=== PATIENT | female | born 1970 | race Caucasian/White ===

== ENCOUNTER 2018-09-01 08:57 | Emergency (ER) | payer OTHER ==
[2018-09-01] MEDS ORDERED: PROMETHAZINE HCL 25 MG/ML INJ IVP ONE ×2 (09:01→09:22)
[2018-09-01] MEDS ORDERED: NS 1,000 ML IV ONE (09:17)
--- NOTE | 2018-09-01 09:32 | EDPHY ---
H & P Stated Complaint: vomiting Source: Patient, RN/MD Exam Limitations: No limitations - Personal History LMP (Females 10-55): Hysterectomy Current Tetanus/Diphtheria Vaccine: Yes Current Tetanus Diphtheria and Acellular Pertussis (TDAP): Yes Tetanus Vaccine Date: last 10 years - Medical/Surgical History Hx Asthma: Yes Hx Chronic Respiratory Disease: No Hx Diabetes: No Hx Cardiac Disease: No Hx Renal Disease: No Hx Cirrhosis: No Hx Alcoholism: No Hx HIV/AIDS: No Hx Splenectomy or Spleen Trauma: No Other PMH: ovarian cancer survivor x 5 years - Social History Smoking Status: Never smoked Time Seen by Provider: 09/01/18 09:17 HPI/ROS: HPI: This is a 47-year-old female who presents with Chief Complaint: Nausea, vomiting Location: GI Quality: Nausea, vomiting Duration: Since 5:00 a.m. Approximately 4 hr Signs and Symptoms: no fever, + nausea, + vomiting, no hematemesis, no blood in stool, no abdominal bloating, no diarrhea, no back pain, no urinary symptoms, no vaginal bleeding/discharge, no indigestion, no chest pain, no shortness of breath Timing: Acute onset, intermittent episodes Severity: Moderate Context: Patient is ovarian cancer survivors, status post hysterectomy x5 years presents with sudden onset of nausea and vomiting 10-20 times that started around 5:00 a.m. This morning approximately 4 hr prior to arrival. Patient admits to drinking vodka all day yesterday. She is here visiting from [place] and leaves tomorrow. She has no concern for food borne illness. She completed azithromycin 5 day course approximately 3 days ago for sinus infection. She denies fever, urinary symptoms, diarrhea, back pain, vaginal bleeding, vaginal discharge, chest pain, shortness of breath. Patient denies any abdominal pain. Patient denies any history of gastritis, esophageal varices , GERD. Patient reports that she does not drink every day and that she is a "social drinker." Modifying Factors: Patient arrived via EMS and was given IV Zofran 4 mg en route. Comment: ROS: A comprehensive 10 system review of systems is otherwise negative aside from elements mentioned in the history of present illness. MEDICAL/SURGICAL/SOCIAL HISTORY: Medical history: ovarian cancer survivor x 5 years Surgical history: Hysterectomy Social history: Lives in [place]. Social alcohol use. Family history noncontributory. CONSTITUTIONAL: Well-developed, well-nourished middle-aged white female, nontoxic appearing, awake and alert, no obvious distress HEENT: Atraumatic and normocephalic, PERRL, EOMI. Nares patent; no rhinorrhea; no nasal mucosal edema. Tympanic membranes clear. Oropharynx clear, no exudate and dry oral mucosa. Airway patent. No lymphadenopathy. No meningismus. Cardiovascular: Normal S1/S2, regular rate, regular rhythm, without murmur rub or gallop. PULMONARY/CHEST: Symmetrical and nontender. Clear to auscultation bilaterally. Good air movement. No accessory muscle usage. ABDOMEN: Soft, nondistended, nontender, no rebound, no guarding, no peritoneal signs, no masses or organomegaly. No CVAT. EXTREMITIES: 2/2 pulses, strength 5/5, no deformities, no clubbing, no cyanosis or edema. NEUROLOGICAL: no focal neuro deficits. GCS 15. SKIN: Warm and dry, no erythema. no rash. Good capillary refill. (Eleonora Rodrigues) Constitutional: Initial Vital Signs Heart Rate 84 09/01/18 09:02 Respiratory Rate 18 09/01/18 09:02 Blood Pressure 116/75 09/01/18 09:02 O2 Sat (%) 99 09/01/18 09:02 O2 Delivery Mode Room Air Allergies/Adverse Reactions: No Known Allergies Allergy (Unverified 09/01/18 09:12) Home Medications: Medication Instructions Recorded Ondansetron Odt [Zofran Odt 4 mg 4 mg PO Q4 PRN #12 tab 09/01/18 (*)] Medical Decision Making ED Course/Re-evaluation: Vital signs reviewed and stable upon arrival. No systemic signs. Placed on night monitor. Given 1 and 0.5 L normal saline and IV promethazine 12.5 mg IV access and laboratory studies ordered Abdomen is soft and nontender and doubt surgical process or need for imaging. I believe that this is related to excessive alcohol use. 1018: Labs reviewed. No signs of leukocytosis/anemia/platelet dysfunction/NADER/ elevated LFTs/electrolyte imbalance/pancreatitis. 1120: Reassessed patient who reports relief of symptoms and asking to be discharged home. Given a prescription for Zofran. Advised supportive care. Abdomen remains soft and nontender. This patient was seen under the supervision of my secondary supervising physician. I evaluated care for this patient independently. (Eleonora Rodrigues) The patient was evaluated and managed by the physician grants and contracts assistant. I have reviewed this chart and I agree with the findings and plan of care as documented , as indicated by my signature. I am the secondary supervising physician. ( Huma Holland) Differential Diagnosis: Differential diagnosis includes but is not limited to gastroenteritis, alcohol intoxication, gallbladder disease, colitis, appendicitis, urinary tract infection, sepsis. (Eleonora Rodrigues) - Data Points Laboratory Results: Laboratory Results 09/01/18 09:50 09/01/18 09:50 Medications Given: Discontinued Medications Sodium Chloride (Ns) 1,000 mls @ 0 mls/hr IV EDNOW ONE; Wide Open PRN Reason: Protocol Stop: 09/01/18 09:18 Last Admin: 09/01/18 09:40 Dose: 1,000 mls Promethazine HCl (Phenergan) 6.25 mg IVP ONCE ONE Stop: 09/01/18 09:02 Last Admin: 09/01/18 09:10 Dose: 6.25 mg Promethazine HCl (Phenergan) 6.25 mg IVP ONCE ONE Stop: 09/01/18 09:23 Last Admin: 09/01/18 10:42 Dose: Not Given Departure - Departure Disposition: Home, Routine, Self-Care Clinical Impression: Alcoholic gastritis without bleeding Condition: Good Instructions: Gastritis (ED), Diet for Stomach Ulcers and Gastritis (ED) Additional Instructions: Consume a minimum of 8-10 glasses of water or electrolyte fluid replacement drinks that include Gatorade, Powerade, Pedialyte. Eat a bland diet for the next 48 hours and then slowly advance as tolerated. Take Zofran 1 tab every 4 hours as needed for nausea, vomiting. Please avoid alcohol use, NSAID use which include ibuprofen, Motrin, Aleve, Advil. Return to the Emergency Room if symptoms do not resolve in the next 48-72 hours , you spike a fever > 102 F, or experience intractable abdominal pain/nausea/ vomiting. Referrals: [facility],. [Clinic] - As per Instructions Prescriptions: Ondansetron Odt [Zofran Odt 4 mg (*)] 4 mg PO Q4 PRN #12 tab PRN Reason: Nausea/Vomiting, Use 1st
[2018-09-01 10:16] LABS: PLATELET COUNT 201 10^3/uL (150-400)
[2018-09-01 11:33] VITALS: BP 132/60
== END 2018-09-01 11:31 | disposition home or self-care (01) ==
DX: K29.20 Alcoholic gastritis without bleeding (principal); Z85.43 Personal history of malignant neoplasm of ovary; Z90.710 Acquired absence of both cervix and uterus
CPT/HCPCS: 96374; G0480; J2550